=== PATIENT | male | born 1990 | race Caucasian/White ===

== ENCOUNTER 2018-07-27 16:37 | Emergency (ER) | payer SELFPAY ==
--- NOTE | 2018-07-27 16:43 | ED Physician Documentation ---
Ear Complaints - HISTORIAN Historian: patient - HPI Stated Complaint: left ear feels clogged Chief Complaint: Ear Complaints Timing: still present Location of Pain: L ear Severity: mild Associated Symptoms: hearing loss. denies: fever, chills, sharp pain, dull pain, aching, discharge, ringing, roaring, trauma to ear, headache, dizziness Further Comments: yes (He was swimming today and felt he had water in the ear after so he used a qtip then put some OTC drops in and felt that he was in a tunnel. He states he feels no pain but it feels clogged and decreased hearing) - ROS MS/SKIN/LYMPH: none - PAST HX Past History: none Immunizations: UTD Allergies/Adverse Reactions: Allergies Allergy/AdvReac Type Severity Reaction Status Date / Time No Known Allergies Allergy Verified 04/28/18 17:35 Home Medications: Ambulatory Orders Medication Instructions Recorded NK 04/28/18 - SOCIAL HX Smoking History: non-smoker Alcohol Use: none Drug Use: none - FAMILY HX Family History: No - VITAL SIGNS Vital Signs: Vital Signs Temp Pulse Resp BP Pulse Ox 136/82 04/28/18 17:49 - REVIEWED ASSESSMENTS Nursing Assessment Reviewed: Yes Vitals Reviewed: Yes Ear Complaint Physical Exam - EXAM General Appearance: no acute distress, alert Ear: left, total cerumen impaction Mouth/Throat: lips nml, gums nml, pharynx nml Nose: nml inspection Resp/CVS: chest non-tender, breath sounds nml, heart sounds nml, no resp. distress, lungs clear, reg. rate & rhythm Abdomen: non-tender Skin: nml color, no skin rash Neuro/Psych: oriented x3 Discharge Clincal Impression: Impacted cerumen of left ear Referrals: Primary Doctor,No [Primary Care Provider] - 2 Days Comments: 1. Carbamide Peroxide use 5-10 drops in left ear twice daily x 4 2. DO NO PUT ANYTHING (qtip etc in the ear) 3. Follow up with PCP in 2-4 days if no improvement 4. Return to ER for any concerns Condition: Stable Disposition: 01 HOME, SELF-CARE Decision to Admit: NO Date of Decison to Admit: 07/27/18 Decision Time: 17:00
[2018-07-27 16:55] VITALS: BP 136/96
== END 2018-07-27 17:18 | disposition home or self-care (01) ==
LOC: ED 16:37
DX: H61.22 Impacted cerumen, left ear (principal)
CPT/HCPCS: 99281; 99282